=== PATIENT | female | born 2000 | race Caucasian/White ===

== ENCOUNTER 2022-08-31 16:07 | Emergency (ER) | payer BC, SELFPAY ==
[2022-08-31 16:30] VITALS: BP 108/67; PULSE 74; RESP 18; TEMP 36.8; O2SAT 100
--- NOTE | 2022-08-31 16:37 | ED.URI ---
HPI - URI/Sore Throat General Chief Complaint: Upper Respiratory Infection Stated Complaint: sorethroat,rt ear pain Time Seen by Provider: 08/31/22 16:37 Source: patient Mode of arrival: ambulatory Limitations: no limitations History of Present Illness HPI Narrative: 22-year-old female presenting for complaint of right ear pain and sore throat for 3 weeks. Endorses mild sinus congestion. She denies associated tinnitus, dizziness, nausea, vomiting, fevers or chills. Taking occasional Tylenol and Shivani-Etters for symptoms. Related Data Home Medications Medication Instructions Recorded Confirmed duloxetine 60 mg capsule,delayed 1 mg PO DAILY 08/31/22 08/31/22 release norgestimate 0.25 mg-ethinyl 1 tablet PO DAILY 08/31/22 08/31/22 estradiol 35 mcg tablet ([place]) Allergies Allergy/AdvReac Type Severity Reaction Status Date / Time peanut Allergy Anaphylaxis Verified 08/31/22 16:36 Review of Systems Review of Systems: CONSTITUTIONAL: Denies malaise, chills, or fever. EYES: Denies visual changes, redness, or discharge. ENT: Denies sinus pain CARDIOVASCULAR: Denies chest pain, palpitations, or edema. RESPIRATORY: Denies cough or dyspnea. GASTROINTESTINAL: Denies abdominal pain, nausea, vomiting, diarrhea SKIN: Denies rash or itching. MUSCULOSKELETAL: Denies myalgia. NEUROLOGIC: Denies headache. All systems reviewed & are unremarkable except as noted in HPI and below PMFSH Comments At time of signature, agree with nursing past medical, surgical, social and family history. There is no relevant family history pertinent to the presenting complaint Exam Narrative: GENERAL: Well-appearing, well-nourished HEAD: Normocephalic EYES: PERRLA, conjunctivae clear ENT: Nares clear. Mucous membranes moist. TMs pearly washburn with dull light reflex bilaterally, mild scarring; no tragal tenderness. Oropharynx not erythematous without lesions. no drooling, no hoarseness, no trismus, uvula midline. NECK: Supple. No lymphadenopathy CHEST: Clear to auscultation, breath sounds equal. HEART: Regular rate and rhythm. SKIN: Warm, dry, no rash. NEURO: Alert and oriented x3. Course Course Emergency Course: Patient is aware of diagnosis, understands and agrees to treatment plan. Anticipatory guidance given. Patient agrees to follow-up as directed and is aware of reasons to seek care at the emergency department. Portions of this record may have been created with voice recognition software Level of Care: Express Care Visit Vital Signs Vital signs: Vital Signs Temperature 98.2 F 08/31/22 16:30 Pulse Rate 74 08/31/22 16:30 Respiratory Rate 18 08/31/22 16:30 Blood Pressure 108/67 08/31/22 16:30 Pulse Oximetry 100 08/31/22 16:30 Oxygen Delivery Room Air 08/31/22 16:30 Temperature 98.2 F 08/31/22 16:30 Pulse Rate 74 08/31/22 16:30 Respiratory Rate 18 08/31/22 16:30 Blood Pressure 108/67 08/31/22 16:30 Pulse Oximetry 100 08/31/22 16:30 Oxygen Delivery Room Air 08/31/22 16:30 Reviewed MDM - URI/Sore Throat MDM Narrative Medical decision making narrative: 3 weeks of ear pain, exam unremarkable.. Advised supportive measures and signs/symptoms to go to the ER. Pt is appropriate for outpt treatment and f/u with pcp if no improvement. Differential Diagnosis Differential diagnosis: Likely upper respiratory infection, otitis media, sinusitis and viral infection Discharge Plan Discharge Clinical Impression: Upper respiratory infection Patient Disposition: Home, Self-Care Condition: Stable Instructions: Antibiotic Form, Earache (ED) Additional Instructions: Recommend Flonase spray and Zyrtec (or Claritin/[place]ly) Tylenol 1000mg every 8 hours as needed for pain Symptomatic treatment includes: rest, fluids, and increase humidity of the air at home. Follow up with your primary care provider in 1 week. Go to the ER for worsening symptoms or concerns. Prescriptions: No Ac
== END 2022-08-31 16:53 | disposition home or self-care (01) ==
PROVIDERS: Emergency Provider Nurse Practitioner Family; PCP Nurse Practitioner
DX: J06.9 Acute upper respiratory infection, unspecified (principal)
CPT/HCPCS: 87081; 99212; G0463